=== PATIENT | male | born 1995 | race Caucasian/White ===

== ENCOUNTER 2022-05-02 21:14 | Emergency (ER) | payer OTHER ==
[~2022-05-02] VITALS: Ht 180.3 cm; Wt 74.8 kg
--- NOTE | 2022-05-02 21:18 | NUR ---
Dr. Rivera at bedside for MSE.
[2022-05-02] MEDS ORDERED: diphenhydrAMINE 50 MG/1 ML VIAL IV ONE (21:30)
[2022-05-02] MEDS ORDERED: PROCHLORPERAZINE EDISYLATE 10 MG/2 ML VIAL IV ONE (21:30)
--- NOTE | 2022-05-02 21:38 | NUR ---
Patient does not wish to proceed with medical care recommended by Dr. Rivera. Patient given information related to possible complications, up to and including , which could occur as a result of leaving the hospital at this time. Patient verbalizes understanding of risks involved due to leaving against medical advice. Patient has signed AMA form.
[2022-05-02] MEDS ORDERED: NALO4SPR NS (21:40)
[2022-05-02 21:58] VITALS: BP 131/82
== END 2022-05-02 22:05 | disposition left against medical advice (07) ==
LOC: ER 22:04
DX: T40.411A Poisoning by fentanyl or fentanyl analogs, accidental (unintentional), initial encounter (principal); F41.9 Anxiety disorder, unspecified; R06.89 Other abnormalities of breathing; Y92.89 Other specified places as the place of occurrence of the external cause; Z53.29 Procedure and treatment not carried out because of patient's decision for other reasons; R03.0 Elevated blood-pressure reading, without diagnosis of hypertension
CPT/HCPCS: A4663